=== PATIENT | female | born 1960 | race Caucasian/White ===

== ENCOUNTER 2024-05-08 17:19 | Inpatient (IN) | payer OTHER, SELFPAY ==
[2024-04-14 09:10] LABS: Hematocrit 44.6 % (37.0-47.0); Hemoglobin 14.7 g/dL (12.0-16.0); Platelet Count 215 10^3/uL (130-400); Red Blood Cell Count 5.25 10^6/uL (4.20-5.40); Red Cell Dist. Width 13.2 % (11.5-14.5); White Blood Cell Count 6.7 10^3/uL (4.8-10.8)
[2024-04-14 09:27] LABS: Blood Urea Nitrogen 20 mg/dl (7-17); Carbon Dioxide 28 mmol/L (22-30); Chloride 103 mmol/L (98-107); Glucose 107 mg/dl (70-99); Potassium 4.6 mmol/L (3.5-5.1); Sodium 139 mmol/L (135-145); eGFR 56.11
[2024-04-14 13:34] VITALS: BMI 38.4
[2024-05-08] VITALS (16 sets, daily range): BP systolic 84–148; BP diastolic 46–93; BMI 38.4
[2024-05-08] MEDS: NORMOSOL-R/PLASMALYTE-A 1000 IV ×2 (09:41→16:07)
[2024-05-08] MEDS: TYLENOL 1000 MG PO (09:41)
[2024-05-08] MEDS: TRANSDERM-SCOP 1 PATCH TRANSDERM (09:48)
--- NOTE | 2024-05-08 14:28 | W.IMMPOSTOP ---
Surgical Immed Post Op Note
-
Primary Surgeon: Airam
Assisting Surgeon: None
Pre-op Diagnosis: Recurrent ventral incisional hernia
Post-op Diagnosis: Recurrent ventral incisional hernia
Procedure Performed: Recurrent ventral incisional hernia repair with mesh, mesh explantation
Anesthesia Type: General
Specimen / Cultures: None
Estimated Blood Loss: 53 cc
Complications: None
Operative Findings:
1. Isolated small bowel adhesion to old mesh taken down, area imbricated transversely
2. Fascial defect spanned 13 x 4 cm
3. Old mesh explanted
4. Retrorectus repair with Bard soft 15 x 25 cm mesh, secured with interrupted 2-0 Vicryl
5. Posterior sheath closed with 2-0 PDS spiral
6. Anterior sheath closed with #1 PDS symmetric
7. 19 Fr Seng drain into retrorectus space
Plan:
-- Clears for today, ADAT
-- Pain control with Tylenol, Toradol, Dilaudid JUSTOWRITER OPERATOR (can transition to PO tomorrow if tolerating diet)
-- DC Zamora POD#1
-- Binder at all times
-- Plan to DC with LINCOLN in place
[2024-05-08] MEDS: DILAUDID 0.5 MG IV (15:06)
[2024-05-08] MEDS: DILAUDID PCA 30 IV (15:50)
[2024-05-08] MEDS: ZOFRAN 4 MG IV ×2 (17:23→23:18)
[2024-05-08] MEDS: TYLENOL PO ×4 (17:34→23:22)
[2024-05-08] MEDS: LOVENOX 40 MG SC (17:34)
[2024-05-08] MEDS: COMPAZINE 10 MG IV (19:18)
[2024-05-08] MEDS: BENADRYL 12.5 MG IV (21:32)
[2024-05-09] MEDS: COMPAZINE 10 MG IV (01:19)
[2024-05-09] MEDS: NORMOSOL-R/PLASMALYTE-A 1000 IV ×3 (01:25→21:23)
[2024-05-09] MEDS: TYLENOL PO ×4 (04:22→16:05)
[2024-05-09 07:30] VITALS: BP 91/53
[2024-05-09 09:51] LABS: Hematocrit 37.3 % (37.0-47.0); Hemoglobin 12.3 g/dL (12.0-16.0); Mean Corpuscular Hgb 28.3 pg (27.0-31.0); Mean Corpuscular Volume 85.7 fL (81.0-99.0); Mean Platelet Volume 10.6 fL (7.4-10.4); Platelet Count 212 10^3/uL (130-400); Red Blood Cell Count 4.35 10^6/uL (4.20-5.40); Red Cell Dist. Width 13.4 % (11.5-14.5); White Blood Cell Count 13.4 10^3/uL (4.8-10.8)
[2024-05-09 10:15] LABS: Blood Urea Nitrogen 21 mg/dl (7-17); Calcium 8.7 mg/dl (8.4-10.2); Carbon Dioxide 29 mmol/L (22-30); Chloride 101 mmol/L (98-107); Estimated Creatinine Clearance 64 ml/min; Glucose 123 mg/dl (70-99); Potassium 3.9 mmol/L (3.5-5.1); Sodium 136 mmol/L (135-145); eGFR 56.11
[2024-05-09 11:30] VITALS: BP 108/57
--- NOTE | 2024-05-09 11:34 | CM ---
Reviewed the chart notes and spoke with the patient at the bedside. The patient resides with her mother in a two story home with no steps to enter. The patient reports no DME/VN/SNF in the past. The patient confirmed her pharmacy of choice is the
[facility] [address] [place]. Patient currently with drain. Discussed VN options and family has had VN in past. Referral sent via [facility] to VN. CM continues to be available to patient/family and is monitoring medical plan for needs at
discharge.
Plan: Discharge to home with VN services.
--- NOTE | 2024-05-09 12:45 | W.PN.GS2 ---
Today's Communication / Plan
-
full liquids
possible low residue for dinner
maintain binder/LINCOLN drain
Assessment / Plan
-
POD#1 Recurrent ventral incisional hernia repair with mesh, mesh explantation
-- Advance diet to full liquids. Low residue diet tonight if tolerates fulls for lunch.
-- Pain control with Tylenol, Toradol, Dilaudid ACADEMIC ADVISING DIRECTOR (will transition to PO tomorrow)
-- Voiding post jimenez removal
-- Binder at all times
-- Plan to DC with LINCOLN in place
-- OOB as tolerated
-- DVT prophylaxis: Lovenox
Subjective Data
-
Date of Service: May 09, 2024
Patient states she feels that her pain is controlled. She has been drinking clear liquid diet. She is out of bed in the chair.
Objective Data
-
Intake and Output
05/08/24 05/09/24 05/10/24
06:59 06:59 06:59
Intake Total 1680 / 1680
Output Total 1050 / 1050 200 / 200
Balance 630 / 630 -200 / -200
Intake:
Oral fluids 480 / 480
IV fluids (Total) 1200 / 1200
Output:
Drain Output (Total) 50 / 50
Right Lower Abdomen Fady- 50 / 50
Acharya
Urine, Jimenez 1000 / 1000
Urine, Voided 200 / 200
Other:
Number of approximated MODERATE 1
amounts of urine
Vital Signs
Temp Pulse Resp BP Pulse Ox
97.3 F 68 16 91/53 94
05/09/24 07:30 05/09/24 07:30 05/09/24 07:30 05/09/24 07:30 05/09/24 07:30
Lab Results
05/09/24 09:40
05/09/24 09:40
Calcium 8.7 mg/dl (8.4-10.2) 05/09/24 09:40
Physical Exam
-
AAOX3, out of bed
binder in place
incisions c/d/i
non-tender, non-distended
Lincoln drain serous
[2024-05-09 15:10] VITALS: BP 114/55
[2024-05-09] MEDS: LOVENOX 40 MG SC (17:02)
[2024-05-09] MEDS: TYLENOL 650 MG PO ×2 (19:16→23:14)
[2024-05-09 19:32] VITALS: BP 116/67
[2024-05-09 23:08] VITALS: BP 113/66
[2024-05-10 03:03] VITALS: BP 112/72
[2024-05-10] MEDS: TYLENOL 650 MG PO ×5 (03:06→19:35)
[2024-05-10 07:00] LABS: Hematocrit 35.8 % (37.0-47.0); Hemoglobin 11.8 g/dL (12.0-16.0); Mean Corpuscular Hgb 28.2 pg (27.0-31.0); Mean Corpuscular Volume 85.4 fL (81.0-99.0); Mean Platelet Volume 11.3 fL (7.4-10.4); Platelet Count 177 10^3/uL (130-400); Red Blood Cell Count 4.19 10^6/uL (4.20-5.40); Red Cell Dist. Width 13.5 % (11.5-14.5); White Blood Cell Count 10.1 10^3/uL (4.8-10.8)
[2024-05-10 07:07] LABS: Blood Urea Nitrogen 17 mg/dl (7-17); Calcium 8.4 mg/dl (8.4-10.2); Carbon Dioxide 28 mmol/L (22-30); Chloride 104 mmol/L (98-107); Estimated Creatinine Clearance 64 ml/min; Glucose 103 mg/dl (70-99); Potassium 4.2 mmol/L (3.5-5.1); Sodium 137 mmol/L (135-145); eGFR 56.11
[2024-05-10 07:25] VITALS: BP 114/67
[2024-05-10] MEDS: ZOFRAN 4 MG IV ×2 (08:34→21:11)
--- NOTE | 2024-05-10 14:08 | W.PN.GS2 ---
Today's Communication / Plan
-
continue low residue diet
switch to po pain medication
monitor fever
Assessment / Plan
-
POD#2 Recurrent ventral incisional hernia repair with mesh, mesh explantation
WBC 10.1, Hgb 11.8, Creatinine 1.1 (baseline)
Tmax 100.6 (last night)
-- Continue low residue diet
-- Pain control with Tylenol, Toradol, Dilaudid IV PRN (INDUSTRIAL SOCIOLOGIST discontinued). Added Ultram po PRN q 6h.
-- Voiding post jimenez removal
-- Binder at all times
-- Plan to DC with LINCOLN in place
-- OOB as tolerated
-- DVT prophylaxis: Lovenox
--Monitor fever
Subjective Data
-
Date of Service: May 10, 2024
Patient states she feels well. Her pain is controlled. She has no nausea or vomiting. She has been out of bed.
Objective Data
-
Intake and Output
05/09/24 05/10/24 05/11/24
06:59 06:59 06:59
Intake Total 1680 / 1680 4920 / 4920
Output Total 1050 / 1050 800 / 800
Balance 630 / 630 4120 / 4120
Intake:
Oral fluids 480 / 480 2520 / 2520
IV fluids (Total) 1200 / 1200 2400 / 2400
Output:
Drain Output (Total) 50 / 50 200 / 200
Right Lower Abdomen Fady- 50 / 50 200 / 200
Acharya
Urine, Jimenez 1000 / 1000
Urine, Voided 600 / 600
Other:
Number of approximated MODERATE 2
amounts of urine
Number of approximated LARGE 4
amounts of urine
Vital Signs
Temp Pulse Resp BP Pulse Ox
98.7 F 75 16 114/67 97
05/10/24 07:25 05/10/24 07:25 05/10/24 12:00 05/10/24 07:25 05/10/24 12:00
Lab Results
05/10/24 05:41
05/10/24 05:41
Calcium 8.4 mg/dl (8.4-10.2) 05/10/24 05:41
[2024-05-10 15:20] VITALS: BP 132/82
[2024-05-10] MEDS: LOVENOX 40 MG SC (17:26)
[2024-05-10] MEDS: ULTRAM 50 MG PO (19:35)
[2024-05-10] MEDS: FLUSH (NSS) 4 FLUSH IV (21:12)
[2024-05-11] VITALS: BP 118/69
[2024-05-11] MEDS: TYLENOL 650 MG PO ×2 (01:24→05:55)
[2024-05-11] MEDS: ULTRAM 50 MG PO ×2 (02:58→09:03)
[2024-05-11] MEDS: FLUSH (NSS) 2 FLUSH IV (02:59)
[2024-05-11] MEDS: TYLENOL PO (04:05)
[2024-05-11 06:15] LABS: Blood Urea Nitrogen 15 mg/dl (7-17); Carbon Dioxide 27 mmol/L (22-30); Chloride 104 mmol/L (98-107); Estimated Creatinine Clearance 64 ml/min; Glucose 109 mg/dl (70-99); Potassium 4.1 mmol/L (3.5-5.1); Sodium 137 mmol/L (135-145); eGFR 56.11
[2024-05-11 06:18] LABS: Hematocrit 36.4 % (37.0-47.0); Hemoglobin 12.1 g/dL (12.0-16.0); Mean Corp Hgb Conc. 33.2 g/dL (33.0-37.0); Mean Corpuscular Hgb 28.2 pg (27.0-31.0); Mean Corpuscular Volume 84.8 fL (81.0-99.0); Mean Platelet Volume 11.3 fL (7.4-10.4); Platelet Count 191 10^3/uL (130-400); Red Blood Cell Count 4.29 10^6/uL (4.20-5.40); Red Cell Dist. Width 13.2 % (11.5-14.5); White Blood Cell Count 8.6 10^3/uL (4.8-10.8)
[2024-05-11 07:35] VITALS: BP 134/87
--- NOTE | 2024-05-11 07:47 | W.PN.GS2 ---
Today's Communication / Plan
-
-- Miralax daily
-- Binder at all times
-- Plan to DC with LINCOLN in place
-- DC today
Assessment / Plan
-
POD#3 Recurrent ventral incisional hernia repair with mesh, mesh explantation
WBC normal, Hb stable, Creatinine 1.1 (baseline)
Afebrile for 24 hours, likely related to atelectasis encouraged OOB and ambulation
HD stable
Recovering well. No postoperative concerns. Okay for discharge from surgical perspective.
-- LRD
-- Pain control with Tylenol, Toradol, Tramadol
-- Miralax daily
-- Binder at all times
-- Plan to DC with LINCOLN in place
-- OOB as tolerated
-- DVT prophylaxis: Lovenox
-- DC today
Subjective Data
-
Date of Service: May 11, 2024
No complaints. Pain well-controlled. Mild nausea with narcotic use, denies any other nausea and no episodes of vomiting. Passing flatus. No BM. Has tolerated low residue diet for 24 hours. Ambulating. Voiding. Afebrile for 24 hrs.
Objective Data
-
Intake and Output
05/10/24 05/11/24 05/12/24
06:59 06:59 06:59
Intake Total 4920 / 4920 1480 / 1480
Output Total 800 / 800 110 / 110
Balance 4120 / 4120 1370 / 1370
Intake:
Oral fluids 2520 / 2520 880 / 880
IV fluids (Total) 2400 / 2400 600 / 600
Output:
Drain Output (Total) 200 / 200 110 / 110
Right Lower Abdomen Fady- 200 / 200 110 / 110
Acharya
Urine, Voided 600 / 600
Other:
Number of approximated MODERATE 2
amounts of urine
Number of approximated LARGE 4 3
amounts of urine
Vital Signs
Temp Pulse Resp BP Pulse Ox
98.5 F 80 18 118/69 96
05/11/24 00:00 05/11/24 00:00 05/11/24 00:00 05/11/24 00:00 05/11/24 00:00
Lab Results
05/11/24 04:51
05/11/24 04:51
Calcium 9.0 mg/dl (8.4-10.2) 05/11/24 04:51
Physical Exam
-
Gen: NAD
Abd: soft, NT/ND, non-peritoneal, incision c/d/i - no erythema, ecchymosis or drainage, LINCOLN serosang
Patient has a jimenez catheter: No
Patient has a central line: No
--- NOTE | 2024-05-11 07:50 | W.DS.TRANS ---
DC Summary - [place] Attendant
-
Discharge Instructions:
Sleep Apnea Risk Intermediate
Discharge Diagnosis/Procedures Open recurrent ventral incisional hernia repair
with mesh
Diet Regular,Low Fiber
Additional Diets Follow a low fiber diet until bowels regulate
themselves and then get back to a regular diet
Activity No strenuous activity
Additional Activity No heavy lifting (>20 lbs) or strenuous
activities for 4 to 6 weeks postoperatively
Driving Restrictions No driving if too sore or taking narcotics
Bathing Restrictions OK to Shower
Wound Care Keep incision clean and dry. Stitches will
dissolve. Cover with dry gauze or ABD as needed
. Use abdominal binder for the first 2 to 3
weeks postoperatively. Empty LINCOLN drain daily and
record outputs. Call when output is less than
20 mL for 2 consecutive days.
Instructions:
Stand-Alone Forms:
Changes to Home Medications: Yes
Discharge Medications:
DC Medications w/original date entered in [facility]
polyethylene glycol 3350 17 gram/dose oral powder (Miralax) 4 g PO DAILY Gastrointestinal Issue 05/01/24
pseudoephedrine HCl 60 mg tablet 60 mg PO ONCE PRN congestion 05/01/24
acetaminophen 325 mg tablet 650 mg (2 x 325 mg) PO Q4HPRN PRN mild pain #1 tab 05/11/24
ibuprofen 200 mg tablet 400 - 600 mg (2 - 3 x 200 mg) PO Q6HPRN PRN moderate pain #1 tab 05/11/24
ondansetron 4 mg disintegrating tablet 4 mg PO Q8HPRN PRN nausea/vomiting #10 tabs 05/11/24
tramadol 50 mg tablet 50 mg PO Q6HPRN PRN severe pain/breakthrough pain #20 tabs 05/11/24
Home Medication Changes
Pending Results: No
[2024-05-11 08:01] LABS: % Basophils 0.7 % (0-2); % Eosinophils 1.3 % (0-6); % Immature Granulocytes 0.3 % (0-0.5); % Monocytes 6.6 % (1.7-9.3); % Neutrophils 61.1 % (42.2-75.2); Absolute Basophils 0.1 10^3/uL (0-0.2); Absolute Eosinophils 0.1 10^3/uL (0-0.7); Absolute Lymphocytes 2.6 10^3/uL (1.2-3.4); Absolute Monocytes 0.6 10^3/uL (0.1-0.6); Absolute Neutrophils 5.3 10^3/uL (1.4-6.5); Nucleated Red Blood Cells % 0 %
[2024-05-11] MEDS: MIRALAX 17 GRAMS PO (08:26)
--- NOTE | 2024-05-11 09:56 | CM ---
Pt discharged before seeing CM
Family transporting home
Confirmed accepted by [facility]
Plan - home with [facility]
== END 2024-05-11 09:32 | disposition home health service (06) | DRG 355 ==
LOC: 2 SOUTH 17:19
PROVIDERS: Physician Assistant; ADMITTING PHYSICIAN Surgery; FAMILY PHYSICIAN Family Medicine
PROC: 0WUF0JZ Supplement Abdominal Wall with Synthetic Substitute, Open Approach (ICD-10-PCS; 2024-05-08)
DX: K43.2 Incisional hernia without obstruction or gangrene (principal); E66.9 Obesity, unspecified; Z68.38 Body mass index [BMI] 38.0-38.9, adult; Z85.3 Personal history of malignant neoplasm of breast; Z90.710 Acquired absence of both cervix and uterus; Z85.43 Personal history of malignant neoplasm of ovary; Z90.722 Acquired absence of ovaries, bilateral
CPT/HCPCS: 36415; 80048; 85025; 85027; 93005; C1781